=== PATIENT | female | born 1965 ===

== ENCOUNTER 2021-09-06 04:38 | Day surgery (SDC) | payer OTHER ==
[2021-09-01 14:04] VITALS: BMI 31.4
[2021-09-06] MEDS ORDERED: ISOSULFAN BLUE 50 MG/5 ML VIAL SQ ONE (07:56)
[2021-09-06] MEDS ORDERED: LIDOCAINE HCL 1%, 10 MG/ML (20ML VIAL) ONE (07:56)
[2021-09-06] MEDS ORDERED: FENTANYL CITRATE/PF 50 MCG/ML VIAL ONE ×6 (14:45→17:48)
[2021-09-06] MEDS ORDERED: PROPOFOL 20 ML ONE ×3 (14:45→16:51)
[2021-09-06] MEDS ORDERED: MIDAZOLAM HCL 2 MG/2 ML SINGLE DOSE VIAL ONE ×2 (14:45→17:13)
[2021-09-06] MEDS ORDERED: ceFAZolin SODIUM 1 GM VIAL IVPB ONE (15:18)
[2021-09-06] MEDS ORDERED: KETAMINE HCL 200 MG/20 ML VIAL ONE (15:29)
[2021-09-06] MEDS ORDERED: HYDROmorphone HCl 2 MG/ML VIAL ONE ×2 (15:29→16:29)
[2021-09-06] MEDS ORDERED: LIDOCAINE HCL 1%, 10 MG/ML (20ML VIAL) SQ ONE (16:26)
[2021-09-06] MEDS ORDERED: SUCCINYLCHOLINE CHLORIDE 200 MG/10 ML SYRINGE ONE (16:29)
[2021-09-06] MEDS ORDERED: oxyCODONE HCL 5 MG TABLET PO PRN ×2 (16:29)
[2021-09-06] MEDS ORDERED: PROMETHAZINE HCL 25 MG/1 ML VIAL IVPUSH PRN (16:29)
[2021-09-06] MEDS ORDERED: ONDANSETRON 4 MG/2 ML VIAL IVPUSH PRN ×2 (16:29→17:27)
[2021-09-06] MEDS ORDERED: LACTATED RINGERS SOLUTION 1,000 ML IV SCH ×2 (16:30→17:30)
[2021-09-06] MEDS ORDERED: ACETAMINOPHEN 1000 MG/100 ML BAG IVPB PRN (16:30)
[2021-09-06] MEDS ORDERED: ALBUTEROL SO4 0.083% IH SOL 2.5 MG/3 ML VIAL.NEB. NEB ONE ×2 (17:22)
[2021-09-06] MEDS ORDERED: ALBUTEROL SO4 0.083% IH SOL 2.5 MG/3 ML VIAL.NEB. NEB PRN (17:27)
[2021-09-06 20:11] VITALS: BP 109/81; PULSE 100; TEMP 98.6
== END 2021-09-06 19:45 | disposition home or self-care (01) ==
LOC: JASU-SURG 04:38
PROVIDERS: ATTEND Surgery
PROC: 0HBU0ZZ Excision of Left Breast, Open Approach (ICD-10-PCS; principal; 2021-09-06 13:00)
PROC: 07B60ZX Excision of Left Axillary Lymphatic, Open Approach, Diagnostic (ICD-10-PCS; 2021-09-06 13:00)
DX: C50.212 Malignant neoplasm of upper-inner quadrant of left female breast (principal)
CPT/HCPCS: 78195-TC; 88307-TC; 88342-TC; 94760; A9541